=== PATIENT | male | born 1940 | race Caucasian/White ===

== ENCOUNTER 2019-06-15 18:40 | Inpatient (IN) ==
[2019-06-15 20:12] LABS: Basophils % 0.3 %; Eosinophils # 0.1 K/mcL (0.0-0.6); Eosinophils % 1.1 %; Hematocrit 30.7 % (37.5-50.1); Hemoglobin 9.9 g/dL (12.9-16.9); Immature Granulocytes % 0.5 % (0-4); Lymphocytes # 1.2 K/mcL (0.6-4.6); Lymphocytes % 13.8 %; Mean Corpuscular HGB Conc 32.2 g/dL (31.6-35.5); Mean Corpuscular Hemoglobin 31.1 pg (28.0-33.3); Mean Corpuscular Volume 96.5 fL (83.0-100.0); Mean Platelet Volume 10.2 fL (9.4-12.4); Monocytes # 0.7 K/mcL (0.0-1.3); Monocytes % 8.3 %; Neutrophils # 6.7 K/mcL (1.6-8.9); Platelet Count 225 K/mcL (140-400); Red Blood Count 3.18 M/mcL (4.19-5.50); Red Cell Distribution Width 15.8 % (11.5-14.5); White Blood Count 8.8 K/mcL (4.3-11.1)
[2019-06-15 20:34] LABS: Calcium 8.6 mg/dL (8.6-10.3); Potassium 3.5 mEq/L (3.5-5.1)
[2019-06-15 20:44] LABS: Troponin I 0.08 ng/mL (< 0.04)
[2019-06-15] MEDS ORDERED: Nitroglycerin 1 INCH/GM PACKET TP ONE (21:12)
[2019-06-15] MEDS ORDERED: Furosemide 40 MG/4 ML VIAL IVP ONE (21:12)
[2019-06-16] MEDS ORDERED: *HR* Dextrose 50 % in Water (Syg) 50 ML SYRINGE IVP PRN (00:24)
[2019-06-16] MEDS ORDERED: Dextrose Gel 15 GM/37.5 ML TUBE PO PRN ×2 (00:24)
[2019-06-16] MEDS ORDERED: Ipratropium/Albuterol Neb 3 ML IH PRN (00:25)
[2019-06-16] MEDS ORDERED: Acetaminophen 325 MG TABLET PO PRN (00:25)
[2019-06-16] MEDS: Insulin LISPRO 300 UNITS/3 ML VIAL SQ SCH ×3 (06:30→17:10)
[2019-06-16 08:06] LABS: % Iron Saturation 6 % (20-55); Albumin 2.9 g/dL (3.5-5.7); Bilirubin,Direct 0.3 mg/dL (0.0-0.2); Bilirubin,Indirect 0.4 mg/dL (0.0-1.0); Bilirubin,Total 0.7 mg/dL (0.3-1.0); Iron 12 mcg/dL (65-175); Total Protein 5.9 g/dL (6.4-8.9); Transferrin 140 mg/dL (203-362)
[2019-06-16 08:11] LABS: INR 1.2; Prothrombin Time 13.7 Seconds (9.4-12.1)
[2019-06-16 08:23] LABS: Ferritin 343 ng/mL (20-250)
[2019-06-16 09:02] LABS: Basophils % 0.3 %; Eosinophils # 0.2 K/mcL (0.0-0.6); Eosinophils % 2.5 %; Hematocrit 28.2 % (37.5-50.1); Immature Granulocytes % 0.4 % (0-4); Lymphocytes # 0.9 K/mcL (0.6-4.6); Lymphocytes % 13.5 %; Mean Corpuscular HGB Conc 31.9 g/dL (31.6-35.5); Mean Corpuscular Hemoglobin 31.4 pg (28.0-33.3); Mean Corpuscular Volume 98.3 fL (83.0-100.0); Mean Platelet Volume 10.4 fL (9.4-12.4); Monocytes # 0.6 K/mcL (0.0-1.3); Monocytes % 8.7 %; Neutrophils # 5.2 K/mcL (1.6-8.9); Platelet Count 225 K/mcL (140-400); Red Blood Count 2.87 M/mcL (4.19-5.50); Red Cell Distribution Width 15.9 % (11.5-14.5); Segmented Neutrophils % 74.6 %; White Blood Count 6.9 K/mcL (4.3-11.1)
[2019-06-16] MEDS: Furosemide 40 MG/4 ML VIAL IVP SCH ×2 (11:43→20:34)
[2019-06-17] MEDS: Insulin LISPRO 300 UNITS/3 ML VIAL SQ SCH ×5 (00:01→16:38)
[2019-06-17 04:32] LABS: Basophils % 0.5 %; Eosinophils # 0.3 K/mcL (0.0-0.6); Eosinophils % 4.7 %; Hematocrit 30.6 % (37.5-50.1); Hemoglobin 9.5 g/dL (12.9-16.9); Immature Granulocytes % 0.3 % (0-4); Lymphocytes # 1.4 K/mcL (0.6-4.6); Lymphocytes % 23.7 %; Mean Corpuscular Hemoglobin 30.9 pg (28.0-33.3); Mean Corpuscular Volume 99.7 fL (83.0-100.0); Mean Platelet Volume 10.2 fL (9.4-12.4); Monocytes # 0.6 K/mcL (0.0-1.3); Monocytes % 9.6 %; Neutrophils # 3.6 K/mcL (1.6-8.9); Platelet Count 250 K/mcL (140-400); Red Blood Count 3.07 M/mcL (4.19-5.50); Red Cell Distribution Width 15.8 % (11.5-14.5); Segmented Neutrophils % 61.2 %
[2019-06-17 04:47] LABS: Bilirubin,Total 0.5 mg/dL (0.3-1.0); Calcium 8.8 mg/dL (8.6-10.3); Globulin 3.1 g/dL (2.4-3.5); Potassium 3.5 mEq/L (3.5-5.1); Total Protein 6.1 g/dL (6.4-8.9)
[2019-06-17] MEDS: Furosemide 40 MG/4 ML VIAL IVP SCH (09:59)
[2019-06-17] MEDS: carvediloL 6.25 MG TABLET PO SCH (16:36)
[2019-06-18 05:24] LABS: Hematocrit 32.2 % (37.5-50.1); Hemoglobin 9.9 g/dL (12.9-16.9); Mean Corpuscular HGB Conc 30.7 g/dL (31.6-35.5); Mean Corpuscular Hemoglobin 30.8 pg (28.0-33.3); Mean Corpuscular Volume 100.3 fL (83.0-100.0); Platelet Count 265 K/mcL (140-400); Red Blood Count 3.21 M/mcL (4.19-5.50); Red Cell Distribution Width 15.7 % (11.5-14.5); White Blood Count 6.2 K/mcL (4.3-11.1)
[2019-06-18 05:43] LABS: Calcium 8.9 mg/dL (8.6-10.3); Potassium 3.4 mEq/L (3.5-5.1)
[2019-06-18] MEDS: Insulin LISPRO 300 UNITS/3 ML VIAL SQ SCH ×3 (08:59→18:02)
[2019-06-18] MEDS: carvediloL 6.25 MG TABLET PO SCH ×2 (09:09→18:07)
[2019-06-18] MEDS: Loratadine 10 MG TABLET PO SCH (09:09)
[2019-06-18] MEDS: Furosemide 40 MG TABLET PO SCH (09:09)
[2019-06-18] MEDS: Aspirin Enteric Coated 81 MG Tablet PO SCH (09:09)
[2019-06-19 06:41] LABS: Hematocrit 32.4 % (37.5-50.1); Mean Corpuscular HGB Conc 30.9 g/dL (31.6-35.5); Mean Corpuscular Hemoglobin 30.4 pg (28.0-33.3); Mean Corpuscular Volume 98.5 fL (83.0-100.0); Mean Platelet Volume 9.9 fL (9.4-12.4); Platelet Count 269 K/mcL (140-400); Red Blood Count 3.29 M/mcL (4.19-5.50); Red Cell Distribution Width 15.6 % (11.5-14.5); White Blood Count 4.7 K/mcL (4.3-11.1)
[2019-06-19] MEDS: Insulin LISPRO 300 UNITS/3 ML VIAL SQ SCH ×3 (09:05→16:02)
[2019-06-19] MEDS: Aspirin Enteric Coated 81 MG Tablet PO SCH (09:23)
[2019-06-19] MEDS: carvediloL 6.25 MG TABLET PO SCH ×2 (09:23→16:13)
[2019-06-19] MEDS: Loratadine 10 MG TABLET PO SCH (09:23)
[2019-06-19] MEDS: Furosemide 40 MG TABLET PO SCH (09:23)
[2019-06-19] MEDS: 0.9 % Sodium Chloride 1,000 ML IVC SCH (10:27)
[2019-06-19] MEDS ORDERED: 0.9 % Sodium Chloride 2,000 ML ONE (14:22)
[2019-06-19] MEDS ORDERED: Nitroglycerin 1,000 MCG/10 ML VIAL IV ONE (14:23)
[2019-06-19] MEDS ORDERED: Heparin 1,000 UNITS/500 mL 500 ML ONE (14:23)
[2019-06-19] MEDS ORDERED: ISOVUE-370 200 ML INFUS..BTL ONE (14:23)
[2019-06-19] MEDS ORDERED: *HR* Heparin 10,000 UNIT/10 ML VIAL ONE (14:23)
[2019-06-19] MEDS ORDERED: *HR* FentaNYL (PF) 100 MCG/2 ML VIAL ONE (14:55)
[2019-06-19] MEDS ORDERED: *HR* Midazolam HCl 2 MG/2 ML VIAL ONE (14:55)
[2019-06-19] MEDS ORDERED: Verapamil 5 MG/2 ML VIAL ONE (14:56)
[2019-06-20 06:20] LABS: Hematocrit 32.7 % (37.5-50.1); Hemoglobin 10.1 g/dL (12.9-16.9); Mean Corpuscular HGB Conc 30.9 g/dL (31.6-35.5); Mean Corpuscular Hemoglobin 30.4 pg (28.0-33.3); Mean Corpuscular Volume 98.5 fL (83.0-100.0); Mean Platelet Volume 10.2 fL (9.4-12.4); Platelet Count 298 K/mcL (140-400); Red Blood Count 3.32 M/mcL (4.19-5.50); Red Cell Distribution Width 15.6 % (11.5-14.5); White Blood Count 5.2 K/mcL (4.3-11.1)
[2019-06-20 06:33] LABS: Calcium 8.7 mg/dL (8.6-10.3); Potassium 3.6 mEq/L (3.5-5.1)
[2019-06-20] MEDS: carvediloL 6.25 MG TABLET PO SCH (08:50)
[2019-06-20] MEDS: Loratadine 10 MG TABLET PO SCH (08:50)
[2019-06-20] MEDS: Furosemide 40 MG TABLET PO SCH (08:50)
[2019-06-20] MEDS: Insulin LISPRO 300 UNITS/3 ML VIAL SQ SCH (08:51)
[2019-06-20] MEDS: Aspirin Enteric Coated 81 MG Tablet PO SCH (08:51)
[2019-06-20] MEDS: 0.9 % Sodium Chloride 1,000 ML IVC SCH (09:02)
[2019-06-20 11:17] VITALS: BP 147/63
== END 2019-06-20 13:03 | disposition home or self-care (01) | DRG 286 ==
LOC: 3BNU 18:40 → EMEROOARM 18:40 → 3BNU 23:47
PROVIDERS: ADMIT Internal Medicine; ATTEND Internal Medicine

== ENCOUNTER 2019-08-25 11:44 | Observation (INO) ==
[2019-08-25] MEDS ORDERED: 0.9 % Sodium Chloride 1,000 ML IV ONE (12:22)
[2019-08-25 12:39] LABS: Basophils # 0.1 K/mcL (0.0-0.2); Basophils % 0.8 %; Eosinophils # 0.2 K/mcL (0.0-0.6); Eosinophils % 3.5 %; Hematocrit 43.2 % (37.5-50.1); Hemoglobin 13.8 g/dL (12.9-16.9); Immature Granulocytes % 0.3 % (0-4); Lymphocytes # 1.6 K/mcL (0.6-4.6); Lymphocytes % 26.1 %; Mean Corpuscular HGB Conc 31.9 g/dL (31.6-35.5); Mean Corpuscular Hemoglobin 31.1 pg (28.0-33.3); Mean Corpuscular Volume 97.3 fL (83.0-100.0); Mean Platelet Volume 10.7 fL (9.4-12.4); Monocytes # 0.4 K/mcL (0.0-1.3); Monocytes % 5.8 %; Neutrophils # 3.9 K/mcL (1.6-8.9); Platelet Count 221 K/mcL (140-400); Red Blood Count 4.44 M/mcL (4.19-5.50); Red Cell Distribution Width 15.7 % (11.5-14.5); Segmented Neutrophils % 63.5 %; White Blood Count 6.2 K/mcL (4.3-11.1)
[2019-08-25 12:53] LABS: Albumin 4.6 g/dL (3.5-5.7); Albumin/Globulin Ratio 1.4 (1.1-2.2); Bilirubin,Direct 0.1 mg/dL (0.0-0.2); Bilirubin,Indirect 0.3 mg/dL (0.0-1.0); Bilirubin,Total 0.4 mg/dL (0.3-1.0); Globulin 3.2 g/dL (2.4-3.5); Total Protein 7.8 g/dL (6.4-8.9)
[2019-08-25 12:58] LABS: Troponin I 0.04 ng/mL (< 0.04)
[2019-08-25 13:39] LABS: Calcium 10.1 mg/dL (8.6-10.3); Potassium 5.1 mEq/L (3.5-5.1)
[2019-08-25 13:47] LABS: Bilirubin,Urine Negative (Negative); Blood,Urine Negative (Negative); Clarity,Urine Clear (Clear); Color,Urine Yellow (Yellow); Glucose,Urine (UA) Normal (Normal); Ketones,Urine Negative (Negative); Leukocyte Esterase,Urine Negative (Negative); Nitrite,Urine Negative (Negative); PH,Urine 5.5 pH Units (5.0-8.0); Protein,Urine 30 mg/dL (Neg-Trace); Specific Gravity,Urine 1.015 (1.010-1.025); Urobilinogen,Urine Normal (Normal)
[2019-08-25 13:50] LABS: Bacteria,Urine None Seen per hpf (None-Few); Hyaline Casts,Urine None Seen per lpf (None-Few); RBC,Urine 0-3 per hpf (0-3); Squamous Epithelial Cell,Urine Few per lpf (None-Few); WBC,Urine 0-3 per hpf (0-3)
[2019-08-25] MEDS ORDERED: Ondansetron ODT 4 MG TAB.RAPDIS SL PRN (15:19)
[2019-08-25] MEDS ORDERED: Cyanocobalamin (B-12) 1,000 MCG TABLET PO SCH (15:30)
[2019-08-25] MEDS: 0.9 % Sodium Chloride 1,000 ML IVC SCH (16:31)
[2019-08-25] MEDS ORDERED: Dextrose Gel 15 GM/37.5 ML TUBE PO PRN ×2 (17:40→17:50)
[2019-08-25] MEDS ORDERED: *HR* Dextrose 50 % in Water (Syg) 50 ML SYRINGE IVP PRN (17:50)
[2019-08-25] MEDS ORDERED: D5% in Water 1,000 ML IVC PRN (17:50)
[2019-08-25] MEDS: Insulin LISPRO 300 UNITS/3 ML VIAL SQ SCH ×2 (18:04→21:43)
[2019-08-25] MEDS ORDERED: NON-FORMULARY MEDICATION 1 EACH EACH (Atorvastatin Calcium [Lipitor] 20 MG) PO SCH (21:00)
[2019-08-26] MEDS: 0.9 % Sodium Chloride 1,000 ML IVC SCH (04:53)
[2019-08-26 06:57] LABS: Basophils # 0.1 K/mcL (0.0-0.2); Eosinophils # 0.3 K/mcL (0.0-0.6); Eosinophils % 6.9 %; Hematocrit 38.9 % (37.5-50.1); Hemoglobin 12.6 g/dL (12.9-16.9); Immature Granulocytes % 0.2 % (0-4); Lymphocytes # 1.5 K/mcL (0.6-4.6); Lymphocytes % 30.5 %; Mean Corpuscular HGB Conc 32.4 g/dL (31.6-35.5); Mean Corpuscular Hemoglobin 31.8 pg (28.0-33.3); Mean Corpuscular Volume 98.2 fL (83.0-100.0); Mean Platelet Volume 10.5 fL (9.4-12.4); Monocytes # 0.4 K/mcL (0.0-1.3); Monocytes % 8.7 %; Neutrophils # 2.6 K/mcL (1.6-8.9); Platelet Count 198 K/mcL (140-400); Red Blood Count 3.96 M/mcL (4.19-5.50); Red Cell Distribution Width 15.7 % (11.5-14.5); Segmented Neutrophils % 52.7 %
[2019-08-26] MEDS: Loratadine 10 MG TABLET PO SCH (07:10)
[2019-08-26 07:17] LABS: Calcium 9.9 mg/dL (8.6-10.3); Magnesium 2.6 mg/dL (1.6-2.6); Potassium 4.7 mEq/L (3.5-5.1)
[2019-08-26] MEDS: Ringers Solution, Lactated 1,000 ML IVC SCH ×2 (08:24→17:56)
[2019-08-26] MEDS: Insulin LISPRO 300 UNITS/3 ML VIAL SQ SCH ×4 (08:49→20:41)
[2019-08-26] MEDS ORDERED: Perflutren Lipid Microsphere 1.3 ML in 0.9 % Sodium Chloride 8.7 ML IVP ONE (11:12)
[2019-08-26] MEDS: *HR* Heparin 5,000 UNIT/ML VIAL SQ SCH (18:52)
[2019-08-27 01:38] LABS: Calcium 9.3 mg/dL (8.6-10.3)
[2019-08-27] MEDS: Ringers Solution, Lactated 1,000 ML IVC SCH (04:46)
[2019-08-27] MEDS: *HR* Heparin 5,000 UNIT/ML VIAL SQ SCH (04:47)
[2019-08-27 08:12] VITALS: BP 146/68
[2019-08-27] MEDS: Insulin LISPRO 300 UNITS/3 ML VIAL SQ SCH (08:13)
[2019-08-27] MEDS: Loratadine 10 MG TABLET PO SCH (08:18)
[2019-08-28 22:24] LABS: Alpha 2 Globulin (PEP) 0.76 g/dL (0.48-1.05); Beta Globulin (PEP) 0.84 g/dL (0.48-1.10)
[2019-08-29 00:10] LABS: Kappa Qnt Free Light Chains 71.68 mg/L (3.30-19.40); Lambda Qnt Free Light Chains 30.55 mg/L (5.71-26.30)
[2019-08-29 11:18] LABS: IFE Reflexed NOT DONE
[2019-08-31 11:04] LABS: Urine Collection Volume 1548 mL
== END 2019-08-27 13:55 | disposition home or self-care (01) ==
LOC: 2ANU 11:44 → EMEROOARM 11:44 → 2ANU 15:18 → SUATTDRO 15:19
PROVIDERS: ADMIT Internal Medicine; ATTEND Internal Medicine